=== PATIENT | male | born 1975 | race Caucasian/White ===

== ENCOUNTER → 2018-03-09 | Emergency (ER) | payer OTHER ==
[~2018-03-09] VITALS: Ht 177.8 cm; Wt 83.9 kg
[~2018-03-09] MED LIST: CIPRO500 MG PO; DICY20TA PO; FLAGYL500MG PO; INTESTINEX680 M1 PO
== END | disposition home or self-care (01) ==
LOC: ER 10:00
DX: R10.32 Left lower quadrant pain (principal); K57.32 Diverticulitis of large intestine without perforation or abscess without bleeding

== ENCOUNTER → 2018-09-16 | Emergency (ER) | payer OTHER ==
[~2018-09-16] VITALS: Ht 177.8 cm; Wt 83.9 kg
[~2018-09-16] MED LIST changes: +KETO10TA2 PO; +TAMS0.4C PO
== END | disposition home or self-care (01) ==
LOC: ER 16:35
DX: N20.1 Calculus of ureter (principal); R10.32 Left lower quadrant pain

== ENCOUNTER 2019-02-14 20:36 | Emergency (ER) | payer OTHER ==
[~2019-02-14] VITALS: Ht 177.8 cm; Wt 83.9 kg
[2019-02-15] MEDS ORDERED: CIPRO500 MG PO (08:26)
[2019-02-15] MEDS ORDERED: FLAGYL500MG PO (08:26)
[2019-02-15] MEDS ORDERED: PERCOCET 5-3251 EACH PO (08:26)
[2019-02-15] MEDS ORDERED: KETO10TA2 PO (08:26)
[2019-02-15] MEDS ORDERED: LEVSIN/SL0.125 MG SL (08:26)
[2019-02-15] MEDS ORDERED: PEPCID AC20 MG PO (08:26)
[2019-02-15] MEDS ORDERED: INTESTINEX680 M1 PO (08:26)
== END 2019-02-15 14:25 | disposition home or self-care (01) ==
LOC: ER 20:36
DX: K57.92 Diverticulitis of intestine, part unspecified, without perforation or abscess without bleeding (principal); R10.32 Left lower quadrant pain

== ENCOUNTER 2019-12-20 11:58 | Emergency (ER) | payer OTHER ==
[~2019-12-20] VITALS: Ht 177.8 cm; Wt 81.6 kg
[~2019-12-20 11:58] MED LIST changes: +LEVSIN/SL0.125 MG SL; +PEPCID AC20 MG PO; +PERCOCET 5-3251 EACH PO
== END 2019-12-20 16:00 | disposition home or self-care (01) ==
LOC: ER 11:58
DX: B34.9 Viral infection, unspecified (principal); B96.0 Mycoplasma pneumoniae [M. pneumoniae] as the cause of diseases classified elsewhere

== ENCOUNTER 2021-02-18 03:12 | Emergency (ER) | payer OTHER ==
[~2021-02-18] VITALS: Ht 177.8 cm; Wt 83.9 kg
== END 2021-02-18 16:29 | disposition home or self-care (01) ==
LOC: ER 03:12
DX: R10.32 Left lower quadrant pain (principal)

== ENCOUNTER 2021-03-27 12:29 | Emergency (ER) | payer OTHER ==
[~2021-03-27] VITALS: Ht 175.3 cm; Wt 84.8 kg
[2021-03-27] MEDS ORDERED: ZITHROMAX500 MG PO (15:54)
== END 2021-03-27 16:28 | disposition home or self-care (01) ==
LOC: ER 12:29
DX: R00.2 Palpitations (principal); B96.0 Mycoplasma pneumoniae [M. pneumoniae] as the cause of diseases classified elsewhere; F06.4 Anxiety disorder due to known physiological condition

== ENCOUNTER 2021-07-19 12:33 | Emergency (ER) | payer OTHER ==
[~2021-07-19] VITALS: Ht 177.8 cm; Wt 84.8 kg
[~2021-07-19 12:33] MED LIST changes: +ZITHROMAX500 MG PO
[2021-07-19] MEDS ORDERED: BACLOFEN5 MG (13:24)
[2021-07-19] MEDS ORDERED: NABUMETONE750 MG (13:25)
[2021-07-19] MEDS ORDERED: LIDOPRO PATCH1 EACH TOP (17:45)
== END 2021-07-19 18:06 | disposition home or self-care (01) ==
LOC: ER 12:33
DX: R10.31 Right lower quadrant pain (principal)

== ENCOUNTER 2021-11-07 21:26 | Emergency (ER) | payer OTHER ==
[~2021-11-07] VITALS: Ht 177.8 cm; Wt 83.9 kg
[~2021-11-07 21:26] MED LIST changes: +BACLOFEN5 MG; +LIDOPRO PATCH1 EACH TOP; +NABUMETONE750 MG
[2021-11-07] MEDS ORDERED: LEVSIN/SL0.125 MG PO (23:57)
[2021-11-07] MEDS ORDERED: ULTRAM50 MG PO (23:57)
[2021-11-07] MEDS ORDERED: INTESTINEX680 M1 PO (23:57)
[2021-11-07] MEDS ORDERED: PEPCID AC20 MG PO (23:57)
[2021-11-07] MEDS ORDERED: METRONIDAZOLE500 MG PO (23:57)
[2021-11-07] MEDS ORDERED: CIPRO500 MG PO (23:57)
== END 2021-11-08 06:17 ==
LOC: ER 21:26
DX: K57.92 Diverticulitis of intestine, part unspecified, without perforation or abscess without bleeding (principal); Z20.822 Contact with and (suspected) exposure to COVID-19

== ENCOUNTER 2023-06-14 03:21 | Emergency (ER) | payer OTHER ==
[~2023-06-14] VITALS: Ht 177.8 cm; Wt 83.9 kg
[~2023-06-14 03:21] MED LIST changes: +LEVSIN/SL0.125 MG PO; +METRONIDAZOLE500 MG PO; +ULTRAM50 MG PO
== END 2023-06-14 14:05 | disposition home or self-care (01) ==
LOC: ER 03:21
DX: K57.33 Diverticulitis of large intestine without perforation or abscess with bleeding (principal); R10.32 Left lower quadrant pain
CPT/HCPCS: 36415; 74177; Q9965

== ENCOUNTER 2024-07-15 11:48 | Emergency (ER) | payer OTHER ==
[~2024-07-15] VITALS: Ht 177.8 cm; Wt 82.6 kg
[~2024-07-15 11:48] MED LIST changes: +DOLOGEN CAPLET1 EACH PO; +TUSNEL LIQUID178 ML PO
[2024-07-15] MEDS ORDERED: 0.9 % SODIUM CHLORIDE 1,000 ML IV SCH (12:45)
[2024-07-15] MEDS ORDERED: CIPROFLOXACIN IN 5 % DEXTROSE 400 MG/200 ML PIGGYBAG IV ONE ×3 (12:45→12:52)
[2024-07-15] MEDS ORDERED: METRONIDAZOLE/SODIUM CHLORIDE 500 MG/100 ML PIGGYBACK IV ONE ×2 (12:45→12:51)
[2024-07-15] MEDS ORDERED: BARIUM SULFATE 450 ML ORAL.SUSP PO ONE (13:10)
[2024-07-15 13:22] LABS: HEMATOCRIT 38.5 % (39.0-48.0); HEMOGLOBIN 13.1 g/dL (13-16.00); MEAN CELL VOLUME 90.9 fL (80.0-100.00); MEAN CORPUSCULAR HGB CONC 34.2 g/dl (32.0-36.0); PLATELET COUNT 189 K/uL (150-450); RED BLOOD COUNT 4.23 M/uL (4.00-6.00); RED CELL DISTRIBUTION WIDTH 13.2 % (11.5-14.5)
[2024-07-15 13:43] LABS: CALCIUM 9.4 mg/dL (8.5-10.1); CREATININE SERUM 0.76 mg/dL (0.70-1.30); GFR 108.13; POTASSIUM 4.78 mEq/L (3.5-5.1)
[2024-07-15 13:53] LABS: URINE APPEARANCE Turbid; URINE BILIRRUBIN Negative (NEGATIVE); URINE BLOOD Negative; URINE COLOR Yellow; URINE GLUCOSE Negative (NEGATIVE); URINE KETONE Negative (NEGATIVE); URINE LEUKOCYTE Negative; URINE NITRATE Negative; URINE PROTEIN Negative (NEGATIVE); URINE UROBILINOGEN 0.2 E.U./dl
[2024-07-15 13:57] LABS: URINE BACTERIA 3.7 uL (0.0-1933); URINE CAST 0.15 uL (0.0-1.40); URINE RBC 1.2 uL (0.0-20.8); URINE WBC 1.6 uL (0.0-23.2)
== END 2024-07-15 16:21 | disposition home or self-care (01) ==
LOC: ER 11:50
PROVIDERS: Emergency Medicine
DX: K57.92 Diverticulitis of intestine, part unspecified, without perforation or abscess without bleeding (principal); R10.9 Unspecified abdominal pain

== ENCOUNTER 2024-07-19 21:54 | Inpatient (IN) | payer OTHER ==
[~2024-07-19] VITALS: Ht 177.8 cm; Wt 81.6 kg
[2024-07-19] MEDS ORDERED: FAMOtidine 10 MG/ML (4ML VIAL) IV ONE (23:00)
[2024-07-19] MEDS ORDERED: 0.9 % SODIUM CHLORIDE 1,000 ML IV ONE (23:00)
[2024-07-19] MEDS ORDERED: MORPHINE SULFATE 4 MG/ML VIAL IV ONE (23:00)
[2024-07-19] MEDS ORDERED: ONDANSETRON HCL 2 MG/ML VIAL IV ONE (23:00)
[2024-07-19] MEDS ORDERED: FAMOTIDINE/PF 20 MG/2 ML VIAL ONE (23:24)
[2024-07-19] MEDS ORDERED: ONDANSETRON HCL 2 MG/ML VIAL ONE (23:24)
[2024-07-20 00:12] LABS: PH,URINE 5.5 (5.0-8.0); URINE APPEARANCE Clear; URINE BILIRRUBIN Negative (NEGATIVE); URINE BLOOD Negative; URINE COLOR Yellow; URINE GLUCOSE Negative (NEGATIVE); URINE KETONE 15 (NEGATIVE); URINE LEUKOCYTE Negative; URINE NITRATE Negative; URINE PROTEIN Negative (NEGATIVE); URINE UROBILINOGEN 0.2 E.U./dl
[2024-07-20 00:15] LABS: URINE WBC 2.6 uL (0.0-23.2)
[2024-07-20 00:34] LABS: ALBUMIN 4.2 gm/dL (3.4-5.0); BILIRUBIN TOTAL 1.8 mg/dL (0.3-1.2); CALCIUM 9.2 mg/dL (8.5-10.1); CREATININE SERUM 0.88 mg/dL (0.70-1.30); GFR 91.3; GLOBULINA 4.2 G/DL (2.4-3.5); POTASSIUM 3.39 mEq/L (3.5-5.1); TOTAL PROTEIN 8.4 gm/dL (6.4-8.2)
[2024-07-20 00:41] LABS: C-REACTIVE PROTEIN 3.15 MG/DL (0.00-0.29); URINE BACTERIA 1.2 uL (0.0-1933); URINE RBC 0.9 uL (0.0-20.8)
[2024-07-20 01:35] LABS: HEMATOCRIT 37.6 % (39.0-48.0); HEMOGLOBIN 13.1 g/dL (13-16.00); MEAN CELL VOLUME 92.4 fL (80.0-100.00); MEAN CORPUSCULAR HEMOGLOBIN 32.2 pg (27.00-32.0); MEAN CORPUSCULAR HGB CONC 34.9 g/dl (32.0-36.0); PLATELET COUNT 186 K/uL (150-450); RED BLOOD COUNT 4.07 M/uL (4.00-6.00); RED CELL DISTRIBUTION WIDTH 12.8 % (11.5-14.5)
[2024-07-20 01:59] LABS: ERYTHROCYTE SEDIMENTATION RATE 8 mm/hr
[2024-07-20] MEDS ORDERED: MEPERIDINE HCL/PF 50 MG/ML VIAL IM STA (03:54)
[2024-07-20] MEDS ORDERED: METRONIDAZOLE/SODIUM CHLORIDE 100 ML IV SCH (03:55)
[2024-07-20] MEDS ORDERED: CIPROFLOXACIN IN 5 % DEXTROSE 200 ML IV SCH (03:55)
[2024-07-20] MEDS ORDERED: METRONIDAZOLE/SODIUM CHLORIDE 500 MG/100 ML PIGGYBACK IV ONE ×2 (04:04→08:35)
[2024-07-20] MEDS ORDERED: CIPROFLOXACIN IN 5 % DEXTROSE 400 MG/200 ML PIGGYBAG IV ONE (04:04)
[2024-07-20] MEDS ORDERED: SODIUM CHLORIDE 0.45 % 1,000 ML IV SCH ×2 (09:45)
[2024-07-20] MEDS ORDERED: MEPERIDINE HCL 25 MG/ML AMPUL IM PRN ×2 (10:00→10:45)
[2024-07-20] MEDS ORDERED: PIPERACILLIN/TAZOBACTAM SODIUM 3.375 GM in 0.9 % SODIUM CHLORIDE 100 ML IV SCH (10:28)
[2024-07-20] MEDS ORDERED: PIPERACILLIN/TAZOBACTAM SODIUM 3.375 GM VIAL IV ONE (11:00)
[2024-07-21 06:57] LABS: HEMATOCRIT 37.7 % (39.0-48.0); MEAN CELL VOLUME 92.2 fL (80.0-100.00); MEAN CORPUSCULAR HEMOGLOBIN 31.9 pg (27.00-32.0); MEAN CORPUSCULAR HGB CONC 34.7 g/dl (32.0-36.0); PLATELET COUNT 177 K/uL (150-450); RED BLOOD COUNT 4.08 M/uL (4.00-6.00); RED CELL DISTRIBUTION WIDTH 12.8 % (11.5-14.5)
[2024-07-21 07:16] LABS: INR 1.15; PARTIAL THROMBOPLASTIN TIME 29.9 SECONDS (22.0-34.0); PROTHROMBIN TIME 12.4 SECONDS (9.0-11.5)
[2024-07-21 07:33] LABS: ALBUMIN 3.4 gm/dL (3.4-5.0); BILIRUBIN TOTAL 1.62 mg/dL (0.3-1.2); BILIRUBIN,CONJUGATED 0.4 mg/dL (0.0-0.2); BILIRUBIN,UNCONJUGATED 1.22 mg/dL (0.0-0.6); CALCIUM 8.5 mg/dL (8.5-10.1); CREATININE SERUM 0.62 mg/dL (0.70-1.30); ERYTHROCYTE SEDIMENTATION RATE 20 mm/hr; GFR 136.76; GLOBULINA 2.9 G/DL (2.4-3.5); MAGNESIUM 1.9 mg/dL (1.8-2.4); POTASSIUM 4.01 mEq/L (3.5-5.1); PROSTATIC SPECIFIC ANTIGEN 0.367 NG/ML (0.010-4.00); TOTAL PROTEIN 6.3 gm/dL (6.4-8.2)
[2024-07-21 07:45] LABS: C-REACTIVE PROTEIN 11.6 MG/DL (0.00-0.29)
[2024-07-21] MEDS ORDERED: FAMOTIDINE/PF 20 MG/2 ML VIAL IV SCH (10:21)
[2024-07-21] MEDS ORDERED: ENOXAPARIN SODIUM 40 MG/0.4 ML SYRINGE SUBCUTANEO SCH (10:22)
[2024-07-21] MEDS ORDERED: ONDANSETRON HCL 2 MG/ML VIAL IV PRN (11:30)
[2024-07-22 04:56] LABS: URINE WBC 3.7 uL (0.0-23.2)
[2024-07-22 05:12] LABS: URINE APPEARANCE Clear; URINE BILIRRUBIN Negative (NEGATIVE); URINE BLOOD Negative; URINE COLOR Yellow; URINE GLUCOSE Negative (NEGATIVE); URINE LEUKOCYTE Negative; URINE NITRATE Negative; URINE PROTEIN Negative (NEGATIVE)
[2024-07-22 05:22] LABS: URINE BACTERIA 3.7 uL (0.0-1933); URINE KETONE >=160 (NEGATIVE); URINE RBC 0.9 uL (0.0-20.8)
[2024-07-22 06:14] LABS: HEMATOCRIT 35.4 % (39.0-48.0); HEMOGLOBIN 12.4 g/dL (13-16.00); MEAN CELL VOLUME 90.3 fL (80.0-100.00); MEAN CORPUSCULAR HEMOGLOBIN 31.5 pg (27.00-32.0); MEAN CORPUSCULAR HGB CONC 34.9 g/dl (32.0-36.0); PLATELET COUNT 188 K/uL (150-450); RED BLOOD COUNT 3.92 M/uL (4.00-6.00)
[2024-07-22 06:54] LABS: CALCIUM 8.4 mg/dL (8.5-10.1); CREATININE SERUM 0.63 mg/dL (0.70-1.30); GFR 134.26; MAGNESIUM 1.8 mg/dL (1.8-2.4); PHOSPHOROUS 2.8 mg/dL (2.5-4.9); POTASSIUM 4.16 mEq/L (3.5-5.1)
[2024-07-23] MEDS ORDERED: LACTOBACILLUS ACIDOPHILUS 1 CAP CAP PO SCH (17:00)
[2024-07-25 06:20] LABS: HEMATOCRIT 35.5 % (39.0-48.0); HEMOGLOBIN 12.7 g/dL (13-16.00); MEAN CELL VOLUME 88.8 fL (80.0-100.00); MEAN CORPUSCULAR HEMOGLOBIN 31.9 pg (27.00-32.0); MEAN CORPUSCULAR HGB CONC 35.9 g/dl (32.0-36.0); PLATELET COUNT 223 K/uL (150-450); RED BLOOD COUNT 3.99 M/uL (4.00-6.00); RED CELL DISTRIBUTION WIDTH 12.8 % (11.5-14.5)
[2024-07-25 06:46] LABS: ALBUMIN 3.2 gm/dL (3.4-5.0); BILIRUBIN TOTAL 1.01 mg/dL (0.3-1.2); CREATININE SERUM 0.72 mg/dL (0.70-1.30); GFR 115.09; POTASSIUM 3.46 mEq/L (3.5-5.1); TOTAL PROTEIN 6.2 gm/dL (6.4-8.2)
[2024-07-25 06:50] LABS: C-REACTIVE PROTEIN 1.97 MG/DL (0.00-0.29)
[2024-07-25 06:55] LABS: ERYTHROCYTE SEDIMENTATION RATE 27 mm/hr
== END 2024-07-27 14:09 | disposition home or self-care (01) | DRG 392 ==
LOC: ER 21:56 → MEDJ 07-20 10:25 → SEC-K 07-20 10:25 → MEDJ 07-20 11:45
PROVIDERS: General Practice; Internal Medicine; Internal Medicine Geriatric Medicine; ADMIT Specialist; ATTEND Specialist
DX: K57.32 Diverticulitis of large intestine without perforation or abscess without bleeding (principal)